=== PATIENT | male | born 1970 | race Caucasian/White ===

== ENCOUNTER 2017-02-07 22:35 | Emergency (ER) | payer OTHER ==
[~2017-02-07] VITALS: Ht 180.3 cm; Wt 69.9 kg
[~2017-02-07 22:35] MED LIST: AMIODARONE200 MG PO; CARVEDILOL3.125 MG PO; CORDARONE200 M1 PO; COREG3.125 MG PO; DIGOXIN0.25 MG PO; DOLOPHINE10 MG PO; ELIQUIS5 MG PO; LANOXIN PO; LASIX40 MG PO; LISINOPRIL2.5 MG PO; PRILOSEC40 MG PO; XARELTO15 MG PO
[2017-02-07 22:44] VITALS: BP 134/81
--- NOTE | 2017-02-07 22:52 | NUR ---
PLACED IN BED 7. HERE FOR GENERALIZED WEAKNESS.
--- NOTE | 2017-02-07 22:52 | NUR ---
TO ER BED 7
--- NOTE | 2017-02-07 23:01 | NUR ---
12 LEAD EKG DONE BY CHAPLAINCY.
--- NOTE | 2017-02-07 23:15 | NUR ---
GAUGE 22 IV LINE ESTABLISHED TO THE RIGHT HAND. BLOOD DRAW ATTEMPTED BUT UNABLE. LAB.TECH.AT BEDSIDE TO DRAW BLOOD.
[2017-02-07] MEDS ORDERED: AMIODARONE HCL200 MG PO (23:29)
[2017-02-07] MEDS ORDERED: COUMADIN2 MG PO (23:42)
[2017-02-07] MEDS ORDERED: COUMADIN3 MG PO (23:42)
[2017-02-07] MEDS ORDERED: CARDIZEM120 M2 PO (23:42)
[2017-02-07] MEDS ORDERED: ATIVAN1 MG PO (23:42)
--- NOTE | 2017-02-07 23:48 | NUR ---
PORTABLE CXR DONE.
--- NOTE | 2017-02-07 23:55 | NUR ---
URINE DIPSTICK DONE, RESULT NOTED BY .
--- NOTE | 2017-02-08 00:09 | NUR ---
UNABLE TO DO PORTABLE CXR, PT. WENT TO RADIOLOGY DEPARTMENT FOR CXR.
--- NOTE | 2017-02-08 00:14 | NUR ---
MD MADE AWARE OF CRITICAL LABS OF PT=53.2 INR=5.4. PT. BACK FROM X-RAY.
--- NOTE | 2017-02-08 00:36 | NUR ---
MD CAME AT BEDSIDE TO EVALUATE PT.
[2017-02-08] MEDS ORDERED: MORPHINE SULFATE 4 MG/ML SYR IVP ONE (00:45)
--- NOTE | 2017-02-08 00:51 | NUR ---
MORPHINE 4 MG IVP GIVEN FOR HEADACHE ORDERED.
--- NOTE | 2017-02-08 01:00 | NUR ---
WENT FOR CT SCAN OF HEAD VIA WHEELCHAIR.
--- NOTE | 2017-02-08 01:14 | NUR ---
BACK FROM CT SCAN. VERBALIZED IMPROVEMENT OF PAIN FROM 8/10 TO 5/10.
--- NOTE | 2017-02-08 02:26 | NUR ---
MD BACK AT BEDSIDE O RE-EVALUATE AND DISCUSS PLAN OF CARE WITH PATIENT/.
[2017-02-08 02:50] VITALS: BP 140/106
[2017-02-25] MEDS ORDERED: LOPRESSOR25 MG PO (06:25)
== END 2017-02-08 02:40 | disposition home or self-care (01) ==
LOC: MED 22:35
DX: R53.1 Weakness (principal); R79.1 Abnormal coagulation profile; R51 Headache; I50.9 Heart failure, unspecified; F17.200 Nicotine dependence, unspecified, uncomplicated; Z86.19 Personal history of other infectious and parasitic diseases; Z79.01 Long term (current) use of anticoagulants; Z79.899 Other long term (current) drug therapy
CPT/HCPCS: 36415; 70450; 71010; 80053; 81002; 83880; 84484; 85025; 85610; 85730; 93005; 96374; 99285; J2270

== ENCOUNTER 2017-02-24 20:52 | Inpatient (IN) | payer OTHER ==
[~2017-02-24] VITALS: Ht 177.8 cm; Wt 81.6 kg
[~2017-02-24 20:52] MED LIST changes: +AMIO200T2 PO; -AMIODARONE200 MG PO; -CARVEDILOL3.125 MG PO; -CORDARONE200 M1 PO; -COREG3.125 MG PO; -DIGOXIN0.25 MG PO; +DILT-135 PO; +DOL10 PO; -DOLOPHINE10 MG PO; -ELIQUIS5 MG PO; +FURO-570 PO; -LANOXIN PO; -LASIX40 MG PO; -LISINOPRIL2.5 MG PO; +LORA-476 PO; -PRILOSEC40 MG PO; +WARF2TAB79 PO; +WARF3TAB PO; -XARELTO15 MG PO
[2017-02-24 21:15] VITALS: BP 146/100
--- NOTE | 2017-02-24 21:29 | NUR ---
TO ER BED 6
--- NOTE | 2017-02-24 21:30 | NUR ---
PT HAS HX OF CHF, AFIB, A-FLUTTER, AND HEP-C
--- NOTE | 2017-02-24 21:30 | NUR ---
PATIENT PRESENTS TO ED WITH C/O CHEST PAIN, SINCE YESTERDAY, VOMITING . PT STATES CP RADIATES TO THE RIGHT LOWER QUADRANT OF AB .PT DENIES N/D; SKIN IS PINK/WARM/DRY; AAOX4 WITH EVEN AND STEADY GAIT; HR EVEN AND REGULAR; PT DENIES ANY FEVER, OR COUGH AT THIS TIME; PATIENT STATES PAIN OF 8/10 AT THIS TIME; VSS; PATIENT POSITIONED FOR COMFORT; HOB ELEVATED; BEDRAILS UP X2; BED DOWN. ER MD MADE AWARE OF PT STATUS.
[2017-02-24] MEDS ORDERED: NITROGLYCERIN 2% 1 GM PKT TP ONE (21:55)
[2017-02-24] MEDS ORDERED: ASPIRIN 325 MG TAB PO ONE (21:55)
[2017-02-24] MEDS ORDERED: METOPROLOL 5 MG/5 ML VIAL IVP ONE (22:20)
[2017-02-24] MEDS ORDERED: FUROSEMIDE 40 MG/4 ML VIAL IVP ONE (22:35)
[2017-02-24 22:41] LABS: ANION GAP 15.1 (8-16); CALCIUM 8.8 mg/dL (8.5-10.1); CREATININE 1.1 mg/dL (0.6-1.3); POTASSIUM 4.1 mmol/L (3.5-5.1)
[2017-02-24 22:46] LABS: ALBUMIN 2.7 g/dL (3.4-5.0); TOTAL BILIRUBIN 2.7 mg/dL (0.0-1.0); TOTAL PROTEIN, SERUM 8.1 g/dL (6.4-8.2)
[2017-02-24 22:54] LABS: CREATINE KINASE MB 0.7 ng/mL (0-3.6)
[2017-02-24 22:58] LABS: CHOL/HDL RATIO 4.1 (1-4.5)
[2017-02-24 23:59] LABS: HEMATOCRIT 35.5 % (36-52); HEMOGLOBIN 11.2 g/dL (12.0-18.0); MEAN CORPUSCULAR HEMOGLOBIN 26 pg (27-31); MEAN CORPUSCULAR HGB CONC 32 g/dL (33-37); MEAN CORPUSCULAR VOLUME 83 fL (80-94); PLATELET COUNT (AUTO) 287 K/uL (140-450); RED BLOOD CELL COUNT(AUTO) 4.29 MIL/uL (4.20-6.10); RED CELL DISTRIBUTION WIDTH 20.2 % (11.6-13.7); WHITE BLOOD COUNT (AUTO) 13.5 K/uL (4.8-10.8)
[2017-02-25 00:25] LABS: BASOPHILS % (MANUAL) 0 % (0-2); EOSINOPHILS % (MANUAL) 0 % (0-4); LYMPHOCYTES % (MANUAL) 26 % (20-46); MONOCYTES % (MANUAL) 10 % (5-12); NEUTROPHILS % (MANUAL) 64 (43-65)
[2017-02-25] MEDS ORDERED: LORazepam 1 MG TAB PO PRN (00:55)
[2017-02-25] MEDS ORDERED: ONDANSETRON 4 MG/2 ML VIAL IVP PRN (00:55)
[2017-02-25] MEDS ORDERED: MORPHINE SULFATE 2 MG/ML SYR IVP PRN (00:55)
[2017-02-25] MEDS ORDERED: ACETAMINOPHEN 325 MG TAB PO PRN (00:55)
[2017-02-25] MEDS ORDERED: ZOLPIDEM 5 MG TAB PO PRN (00:55)
[2017-02-25] MEDS ORDERED: NITROGLYCERIN 0.4 MG TAB SL PRN (00:55)
[2017-02-25] MEDS ORDERED: ASPIRIN 81 MG TAB.CHEW PO ONE (00:55)
--- NOTE | 2017-02-25 01:15 | NUR ---
Patient will be admitted to care of DR HAINES. Admited to TELE 115. Will go to room 115. Belongings list completed. Report to EMMANUEL DIAZ .
[2017-02-25 01:30] VITALS: BP 134/109
--- NOTE | 2017-02-25 01:30 | NUR ---
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
--- NOTE | 2017-02-25 01:50 | NUR ---
AMBULATED TO BR WITH ASSIST, VERBALIZED VOIDED AND HAD BM, MEDICATED PRN FOR CHEST PAIN WITH MORPHINE IVP, ALL NEEDS ATTENDED.
[2017-02-25 04:00] VITALS: BP 122/75
--- NOTE | 2017-02-25 04:00 | NUR ---
PT SLEEPING, EASILY AROUSABLE, NO SIGNS OF PAIN OR SOB, VITAL SIGNS STABLE, CONTROLLED A-FIB ON TELE, AT BEDSIDE, MONITORED CLOSELY.
--- NOTE | 2017-02-25 06:08 | NUR ---
PAGED DR DEMPSEY, WITH ORDER FOR CARDIAC DIET, ROUNDED ON PT, SLEEPING, NO SIGNS OF DISTRESS, MONITORED CLOSELY.
[2017-02-25] MEDS ORDERED: METO25TA PO (06:25)
--- NOTE | 2017-02-25 07:15 | NUR ---
PT SLEEPING, NO SIGNS OF DISTRESS, REPORT GIVEN TO JOE TREVINO FOR CONTINUITY OF CARE.
--- NOTE | 2017-02-25 07:16 | NUR ---
RECEIVED PT ASLEEP BUT EASILY AROUSABLE, AAOX4, WITH O2 AT 2LPM VIA NC, NO S/S OF ACUTE DISTRESS. WITH IV ACCESS AT RIGHT HAND ON SALINE LOCK PATENT AND INTACT. WITH BILATERAL LOWER EXTREMITIES PITTING EDEMA 3+, NO COMPLAINTS OF PAIN. DISCUSSED PLAN OF CARE, PT VERBALIZED UNDERSTANDING. CALL LIGHT WITHIN REACH, WILL CONTINUE TO MONITOR.
[2017-02-25 08:00] VITALS: BP 134/92
[2017-02-25] MEDS: FUROSEMIDE 40 MG/4 ML VIAL IVP SCH ×2 (08:10→20:44)
[2017-02-25] MEDS: DILTIAZEM 120 MG CAPER PO SCH (08:11)
[2017-02-25] MEDS: METHADONE 10 MG TAB PO SCH (08:11)
[2017-02-25] MEDS: AMIODARONE 200 MG TAB PO SCH ×2 (08:11→20:44)
--- NOTE | 2017-02-25 08:16 | NUR ---
DUE MEDS GIVEN, PT TOLERATED WELL. PT EATING BREAKFAST WITH GOOD APPETITE. CALL LIGHT WITHIN REACH, WILL CONTINUE TO MONITOR
--- NOTE | 2017-02-25 08:37 | NUR ---
PATIENT HAS BEEN SCREENED AND CATEGORIZED MODERATE NUTRITION RISK. PATIENT WILL BE SEEN WITHIN 3-5 DAYS OF ADMISSION. 02/27/17-03/01/[address]
[2017-02-25 08:42] LABS: INR 1.8 (0.8-1.2); PROTHROMBIN TIME 16.9 secs (10.8-13.4)
[2017-02-25 09:18] LABS: CREATINE KINASE MB 0.7 ng/mL (0-3.6)
--- NOTE | 2017-02-25 10:02 | NUR ---
PT ASLEEP, NO S/S OF DISTRESS NOTED. ALL NEEDS ATTENDED, WILL CONTINUE TO MONITOR
[2017-02-25 12:00] VITALS: BP 121/74
--- NOTE | 2017-02-25 12:02 | NUR ---
DR HAINES AT NURSES' STATION
--- NOTE | 2017-02-25 12:27 | NUR ---
CM NOTE INITIAL REVIEW SENT TO [facility] FAX# [phone] MOHSEN ROLDAN PH# [phone]
--- NOTE | 2017-02-25 12:40 | NUR ---
FAX SENT TO [facility] FOR PATIENT'S RECORDS
[2017-02-25] MEDS ORDERED: DILTIAZEM 25 MG/5 ML VIAL IVP PRN (12:45)
--- NOTE | 2017-02-25 13:46 | NUR ---
PT LEFT UNIT FOR XRAY IN STABLE CONDITION
--- NOTE | 2017-02-25 14:57 | NUR ---
UNABLE TO VERIFY WITH THE [facility]. NOTIFIED DR HAINES, STATED TO CONTINUE WITH CURRENT ORDERS
[2017-02-25 16:00] VITALS: BP 111/71
[2017-02-25] MEDS: CARVEDILOL 3.125 MG TAB PO SCH (16:41)
[2017-02-25 16:44] LABS: CREATINE KINASE MB 0.7 ng/mL (0-3.6)
--- NOTE | 2017-02-25 16:44 | NUR ---
DR Bonifacio REYES AT NURSES' STATION. PT PLACED ON FLUID RESTRICTION 1500 ML
[2017-02-25] MEDS ORDERED: WARFARIN 1 MG TAB PO SCH (17:00)
--- NOTE | 2017-02-25 18:21 | NUR ---
PT EATING DINNER WITH GOOD APPETITE. CALL LIGHT WITHIN REACH, WILL CONTINUE TO MONITOR.
--- NOTE | 2017-02-25 19:25 | NUR ---
ENDORSED PT TO JOE BENITEZ IN STABLE CONDITION FOR CONTINUITY OF CARE
--- NOTE | 2017-02-25 19:28 | NUR ---
RECEIVED PT AWAKE ON HIGH FOWLERS POSITION, AAOX4, NO SOB NOTED, VITAL SIGNS TAKEN, BP ON THE LOW SIDE:91/56, ASYMPTOMATIC, DENIES CHEST PAIN, INSTRUCTED PT WITH AT BEDSIDE REGARDING FLUID RESTRICTION, VERBALIZED UNDERSTANDING, MAINTAIN ON CONTACT ISOLATION, PLAN OF CARE DISCUSSED, SAFETY MEASURES IN PLACE, CALL LIGHT WITHIN REACH.
[2017-02-25 20:00] VITALS: BP 91/56
--- NOTE | 2017-02-25 21:00 | NUR ---
DUE LASIX NOT GIVEN DUE TO DECREASE BLOOD PRESSURE, ALL NEEDS ATTENDED.
--- NOTE | 2017-02-25 22:15 | NUR ---
AMBULATED TO BR WITH MINIMAL ASSIST AND VOIDED FREELY, MONITORED CLOSELY.
[2017-02-26] VITALS: BP 92/72
--- NOTE | 2017-02-26 | NUR ---
PT AWAKE, DENIES CHEST PAIN, VITAL SIGNS TAKEN, BP-92/72, ASYMPTOMATIC, NO SOB NOTED, PROVIDED SANDWICH PER REQUEST, CONTINUE TO MONITOR CLOSELY.
[2017-02-26 04:00] VITALS: BP 101/65
--- NOTE | 2017-02-26 04:00 | NUR ---
PT AWAKE WITH AT BEDSIDE, VITAL SIGNS STABLE, DENIES CHEST PAIN, NO SOB NOTED, MONITORED CLOSELY.
--- NOTE | 2017-02-26 06:30 | NUR ---
PT SLEEPING, NO SIGNS OF DISTRESS, CONTINUE TO MONITOR CLOSELY.
--- NOTE | 2017-02-26 07:10 | NUR ---
RECEIVED PATIENT REPORT AT BEDSIDE. PATIENT AWAKE, ALERT AND ORIENTED. NO S/S OF DISTRESS NOTED. NO C/O PAIN AT THIS TIME. PATIENT ON 2L 02 VIA NC. IV LINE NOTED TO THE RIGHT WRIST SALINE LOCKED. PATIENT ON TELE MONITORING. BED LOWERED WITH CALL LIGHT WITHIN REACH. WILL CONTINUE TO MONITOR
[2017-02-26 07:14] LABS: BASOPHILS # (AUTO) 0.4 K/uL (0.00-0.22); BASOPHILS % (AUTO) 3.6 % (0.0-2.0); EOSINOPHILS # (AUTO) 0.1 K/uL (0-0.4); EOSINOPHILS % (AUTO) 1.2 % (0.0-4.0); HEMATOCRIT 32.6 % (36-52); HEMOGLOBIN 10.1 g/dL (12.0-18.0); LYMPHOCYTES % (AUTO) 26.4 % (20.5-51.1); MEAN CORPUSCULAR HEMOGLOBIN 25 pg (27-31); MEAN CORPUSCULAR HGB CONC 31 g/dL (33-37); MEAN CORPUSCULAR VOLUME 82 fL (80-94); MONOCYTES # (AUTO) 0.6 K/uL (0.8-1.0); MONOCYTES % (AUTO) 5.7 % (1.7-9.3); NEUTROPHILS # (AUTO) 7.3 K/uL (1.8-7.7); NEUTROPHILS % (AUTO) 63.1 % (42.2-75.2); PLATELET COUNT (AUTO) 253 K/uL (140-450); WHITE BLOOD COUNT (AUTO) 11.4 K/uL (4.8-10.8)
[2017-02-26 07:39] LABS: INR 1.5 (0.8-1.2); PROTHROMBIN TIME 14.1 secs (10.8-13.4)
[2017-02-26 08:00] VITALS: BP 100/89
[2017-02-26] MEDS: CARVEDILOL 3.125 MG TAB PO SCH ×2 (08:00→17:05)
[2017-02-26 08:47] LABS: ANION GAP 10.7 (8-16); CALCIUM 8.1 mg/dL (8.5-10.1); CARBON DIOXIDE 28.6 mmol/L (21-32); CREATININE 1.2 mg/dL (0.6-1.3); POTASSIUM 4.3 mmol/L (3.5-5.1)
[2017-02-26] MEDS: METHADONE 10 MG TAB PO SCH (08:54)
[2017-02-26] MEDS: DILTIAZEM 120 MG CAPER PO SCH (08:54)
[2017-02-26] MEDS: AMIODARONE 200 MG TAB PO SCH ×2 (08:55→21:06)
[2017-02-26] MEDS: SPIRONOLACTONE 25 MG TAB PO SCH (08:55)
[2017-02-26] MEDS: FUROSEMIDE 40 MG/4 ML VIAL IVP SCH (08:58)
[2017-02-26] MEDS: CLINICAL MONITORING MC SCH (09:00)
--- NOTE | 2017-02-26 10:13 | NUR ---
PATIENT RESTING COMFORTABLY IN BED. NO S/S OF DISTRESS NOTED
--- NOTE | 2017-02-26 11:13 | NUR ---
CM NOTE CONCURRENT REVIEW SENT TO [facility] FAX# [phone] CM JAMAR PH# [phone]
[2017-02-26 12:00] VITALS: BP 109/81
--- NOTE | 2017-02-26 13:00 | NUR ---
PATIENT COMFORTABLY RESTING IN BED, WATCHING TELEVISION. NO S/S OF DISTRESS NOTED
[2017-02-26 16:00] VITALS: BP 122/85
[2017-02-26] MEDS ORDERED: WARFARIN 1 MG TAB PO SCH (17:00)
[2017-02-26] MEDS ORDERED: WARFARIN 2 MG TAB PO SCH (17:00)
--- NOTE | 2017-02-26 17:10 | NUR ---
ECHO DONE AT BEDSIDE
--- NOTE | 2017-02-26 19:22 | NUR ---
PATIENT REPORT GIVEN AT BEDSIDE. PATIENT ENDORSED IN STABLE CONDITION
--- NOTE | 2017-02-26 19:23 | NUR ---
RECEIVED REPORT, ASSUMED CARE. PT AAOX4, SITTING UPRIGHT POSITION IN BED. FAMILY AT BEDSIDE. NO C/O PAIN AT THIS TIME. REGULAR BREATHING PATTERN. PT ON TELE MONITOR. CONTACT ISOLATION PRECAUTION OBSERVED DUE TO HX HEP C AND MRSA NARES.HL TO RIGHT WRIST, INTACT AND PATENT, NO S/S OF INFILTRATION. PLAN OF CARE DISCUSSED AND VERBALIZED UNDERSTANDING. CALL LIGHT AND URINAL WITHIN EASY REACH. ANTICIPATED NEEDS. WILL CONTINUE TO MONITOR.
--- NOTE | 2017-02-26 19:40 | NUR ---
DR. AMY Torres CAME AND SEEN AND EXAMINE PT.
[2017-02-26 20:00] VITALS: BP 120/83
--- NOTE | 2017-02-26 20:17 | NUR ---
C/O HEARTBURN. PAGED DR. ZAKI Torres AND DR. DEMPSEY FIELD OPERATIONS TECHNICIAN . CALLED BACK AND MADE AWARE , WITH ORDER.
[2017-02-26] MEDS: FAMOTIDINE 20 MG TAB PO SCH (21:06)
--- NOTE | 2017-02-26 23:55 | NUR ---
PT AWAKE AT THIS TIME. RESPIRATION EVEN AND UNLABORED,NO SOB, NO RESPIRATORY DISTRESS AT THIS TIME. PT C/O MIGRAINE 05/21. WILL MEDICATE TO RELIEVE PAIN. WILL CONTINUE TO MONITOR. ALL NEEDS ANTICIPATED. CALL LIGHT WITHIN EASY REACH.
[2017-02-27 00:10] VITALS: BP 122/81
[2017-02-27 04:00] VITALS: BP 118/68
--- NOTE | 2017-02-27 04:35 | NUR ---
PT SOUND ASLEEP BUT EASILY AROUSABLE. RESPIRATION REGULAR AND UNLABORED. NO ACUTE CHANGES NOTED, DENIES ANY PAIN AT THIS TIME. FREQUENT ROUNDING DONE. WILL CONTINUE TO MONITOR.
[2017-02-27 05:49] LABS: BASOPHILS # (AUTO) 0.4 K/uL (0.00-0.22); BASOPHILS % (AUTO) 3.7 % (0.0-2.0); EOSINOPHILS # (AUTO) 0.1 K/uL (0-0.4); EOSINOPHILS % (AUTO) 1.1 % (0.0-4.0); HEMATOCRIT 32.2 % (36-52); HEMOGLOBIN 9.9 g/dL (12.0-18.0); LYMPHOCYTES # (AUTO) 2.8 K/uL (2.0-11.5); LYMPHOCYTES % (AUTO) 28.1 % (20.5-51.1); MEAN CORPUSCULAR HEMOGLOBIN 25 pg (27-31); MEAN CORPUSCULAR HGB CONC 31 g/dL (33-37); MEAN CORPUSCULAR VOLUME 82 fL (80-94); MONOCYTES # (AUTO) 0.5 K/uL (0.8-1.0); MONOCYTES % (AUTO) 5.2 % (1.7-9.3); NEUTROPHILS % (AUTO) 61.9 % (42.2-75.2); PLATELET COUNT (AUTO) 242 K/uL (140-450); RED BLOOD CELL COUNT(AUTO) 3.94 MIL/uL (4.20-6.10); RED CELL DISTRIBUTION WIDTH 20.1 % (11.6-13.7); WHITE BLOOD COUNT (AUTO) 9.8 K/uL (4.8-10.8)
--- NOTE | 2017-02-27 06:15 | NUR ---
STILL NEED URINE SPECIMEN FOR UA AND UDS. WENT TO BATHROOM ,VOIDED X1 BUT UNABLE TO COLLECT. INSTRUCTED AGAIN THE NEED FOR URINE. CONTAINER AT BEDSIDE.
[2017-02-27 06:20] LABS: ALBUMIN 2.1 g/dL (3.4-5.0); ANION GAP 8.2 (8-16); CALCIUM 8.2 mg/dL (8.5-10.1); CREATININE 1.1 mg/dL (0.6-1.3); INR 1.4 (0.8-1.2); POTASSIUM 4.2 mmol/L (3.5-5.1); TOTAL BILIRUBIN 1.6 mg/dL (0.0-1.0); TOTAL PROTEIN, SERUM 6.6 g/dL (6.4-8.2)
--- NOTE | 2017-02-27 07:10 | NUR ---
RECEIVED PATIENT REPORT AT BEDSIDE. PATIENT AWAKE, ALERT AND ORIENTED. NO S/S OF DISTRESS NOTED. NO C/O OF PAIN AT THIS TIME. PATIENT ON ROOM AIR. PATIENT ON TELE MONITORING. BED LOWERED WITH CALL LIGHT WITHIN REACH. WILL CONTINUE TO MONITOR
--- NOTE | 2017-02-27 07:26 | NUR ---
ENDORSED PT TO THE NEXT SHIFT FOR CONTINUITY OF CARE. PT IN STABLE CONDITION.
[2017-02-27 08:00] VITALS: BP 125/93
[2017-02-27] MEDS ORDERED: FUROSEMIDE 40 MG/4 ML VIAL IVP SCH (09:00)
[2017-02-27] MEDS: CLINICAL MONITORING MC SCH (09:00)
[2017-02-27] MEDS: AMIODARONE 200 MG TAB PO SCH (09:13)
[2017-02-27] MEDS: METHADONE 10 MG TAB PO SCH (09:13)
[2017-02-27] MEDS: SPIRONOLACTONE 25 MG TAB PO SCH (09:14)
[2017-02-27] MEDS: DILTIAZEM 120 MG CAPER PO SCH (09:14)
[2017-02-27] MEDS: FAMOTIDINE 20 MG TAB PO SCH (09:14)
[2017-02-27] MEDS: CARVEDILOL 3.125 MG TAB PO SCH (09:15)
--- NOTE | 2017-02-27 09:40 | NUR ---
PATIENT ELOPED. PATIENT LEFT THE THE UNIT WITHOUT NOTIFYING ANYONE. PATIENT LEFT TELE MONITOR BOX IN THE ROOM AND DISCONTINUED HIS IV LINE. TALK SHOW HOST NOTIFIED
--- NOTE | 2017-02-27 10:06 | NUR ---
CM NOTE CONCURRENT REVIEW SENT TO [facility] FAX# [phone] CM JAMAR PH# [phone]
[2017-02-27 11:58] LABS: APPEARANCE,URINE CLEAR (CLEAR); BILIRUBIN,URINE NEGATIVE (NEGATIVE); BLOOD, URINE NEGATIVE (NEGATIVE); COLOR,URINE YELLOW (YELLOW); LEUKOCYTE ESTERASE ,URINE NEGATIVE (NEGATIVE); NITRITE, URINE NEGATIVE (NEGATIVE); PH,URINE 6.5 (5.0-9.0); PROTEIN,URINE NEGATIVE (NEGATIVE); UGLUCOSE NEGATIVE (NEGATIVE)
[2017-02-27 12:05] LABS: AMPHETAMINE, URINE NEG. ng/ml (NEG <=1000); BARBITURATE, URINE NEG. ng/ml (NEG <=200); BENZODIAZEPINE, URINE NEG. ng/mL (NEG <=200); CANNABINOID, URINE NEG. ng/mL (NEG <=50); COCAINE, URINE NEG. ng/mL (NEG <=300); OPIATE, URINE POS. ng/mL (NEG <=2000); PHENCYCLIDINE SCREEN,URINE NEG. ng/mL (NEG <=25)
== END 2017-02-27 09:40 | disposition left against medical advice (07) | DRG 194 ==
LOC: MED 20:52 → MTU 02-25 00:57
PROVIDERS: ADMIT Hospitalist; ATTEND Hospitalist
DX: I11.0 Hypertensive heart disease with heart failure (principal); F11.20 Opioid dependence, uncomplicated; Z86.74 Personal history of sudden cardiac arrest; Z79.01 Long term (current) use of anticoagulants; I50.9 Heart failure, unspecified; Z53.21 Procedure and treatment not carried out due to patient leaving prior to being seen by health care provider; F41.9 Anxiety disorder, unspecified; I48.91 Unspecified atrial fibrillation; G89.4 Chronic pain syndrome; B19.20 Unspecified viral hepatitis C without hepatic coma; Z87.898 Personal history of other specified conditions; Z86.711 Personal history of pulmonary embolism; Z95.810 Presence of automatic (implantable) cardiac defibrillator
CPT/HCPCS: 36415; 71010; 71020; 80048; 80053; 80305; 81003; 82550; 82553; 82948; 83735; 83880; 84484; 85025; 85379; 85610; 87081; 93005; 96374; 96375; 99285; J1940; J2270; J3490

== ENCOUNTER 2018-10-14 23:30 | Emergency (ER) | payer MEDICAID, OTHER ==
[~2018-10-14] VITALS: Ht 175.3 cm; Wt 77.1 kg
[~2018-10-14 23:30] MED LIST changes: -AMIO200T2 PO; +AMIO200T5 PO; +METO25TA PO
[2018-10-14 23:37] VITALS: BP 140/86
--- NOTE | 2018-10-14 23:39 | NUR ---
PT AMBULATORY TO ER LOBBY W/ STEADY GAIT IN STABLE CONDITION.
--- NOTE | 2018-10-14 23:56 | NUR ---
PT TO ER BED 9
--- NOTE | 2018-10-15 00:16 | NUR ---
47/M PRESENTS TO ED WITH FAMILY/FRIEND, C/O L SIDED GROIN ABSCESS, X3 DAYS; L LATERAL PROXIMAL THIGH OPEN WOUND/CELLULITIS, X2 WEEKS; L MID LATERAL OPEN WOUND/CELLULITIS, X3 WEEKS. PT REPORTS THAT HE "POPPED" THE GROIN ABSCESS, WHICH MADE HIS PREVIOUS WOUNDS WORSE. PT DENIES ANY FEVER, N/V. HX CHF, A.FIB, IV DRUG USE RX NONCOMPLIANCE
--- NOTE | 2018-10-15 00:37 | NUR ---
Dr. Lemons evaluating patient at bedside.
[2018-10-15] MEDS ORDERED: NACL 0.9% 1,000 ML IV ONE (00:45)
[2018-10-15] MEDS ORDERED: ENOXAPARIN 80 MG/0.8 ML SYR SUBQ ONE (00:45)
[2018-10-15] MEDS ORDERED: CLINDAMYCIN 900 MG in DEXTROSE 5% 100 ML IV ONE (00:45)
[2018-10-15] MEDS ORDERED: NEOMYCIN/POLYMYXIN/BACITRACIN 0.9 GM/1 PKT TP ONE (00:55)
[2018-10-15] MEDS ORDERED: DILTIAZEM 25 MG/5 ML VIAL IVP ONE (00:55)
[2018-10-15] MEDS ORDERED: CLINDAMYCIN 900 MG/6 ML VIAL IV ONE (00:59)
--- NOTE | 2018-10-15 01:09 | NUR ---
X-Ray at bedside.
[2018-10-15 01:13] LABS: BASOPHILS % (AUTO) 0.3 % (0.0-2.0); EOSINOPHILS % (AUTO) 0.3 % (0.0-4.0); HEMATOCRIT 44.2 % (36-52); HEMOGLOBIN 14.6 g/dL (12.0-18.0); LYMPHOCYTES # (AUTO) 2.5 K/uL (2.0-11.5); LYMPHOCYTES % (AUTO) 28.7 % (20.5-51.1); MEAN CORPUSCULAR HEMOGLOBIN 29 pg (27-31); MEAN CORPUSCULAR HGB CONC 33 g/dL (33-37); MEAN CORPUSCULAR VOLUME 86.4 fL (80-94); MONOCYTES # (AUTO) 0.5 K/uL (0.8-1.0); MONOCYTES % (AUTO) 6.2 % (1.7-9.3); NEUTROPHILS # (AUTO) 5.7 K/uL (1.8-7.7); NEUTROPHILS % (AUTO) 64.5 % (42.2-75.2); PLATELET COUNT (AUTO) 193 K/uL (140-450); RED BLOOD CELL COUNT(AUTO) 5.11 MIL/uL (4.20-6.10); RED CELL DISTRIBUTION WIDTH 15.3 % (11.6-13.7); WHITE BLOOD COUNT (AUTO) 8.8 K/uL (4.8-10.8)
[2018-10-15 01:30] LABS: ALBUMIN 3.6 g/dL (3.4-5.0); ANION GAP 11.9 (8-16); CARBON DIOXIDE 31.6 mmol/L (21-32); CREATININE 0.9 mg/dL (0.7-1.3); POTASSIUM 4.5 mmol/L (3.5-5.1); PROTHROMBIN TIME 10.4 secs (10.8-13.4); TOTAL BILIRUBIN 0.4 mg/dL (0.0-1.0)
[2018-10-15 02:41] VITALS: BP 118/77
--- NOTE | 2018-10-15 02:41 | NUR ---
Patient discharged with v/s stable. Written and verbal after care instructions given and explained. Patient alert, oriented and verbalized understanding of instructions. Ambulatory with steady gait. All questions addressed prior to discharge. ID band removed. Patient advised to follow up with PMD. Rx of BACTRIM, MOTRIN, COUMADIN, CARDIZEM given. Patient educated on indication of medication including possible reaction and side effects. Opportunity to ask questions provided and answered.
== END 2018-10-15 02:41 | disposition home or self-care (01) ==
LOC: MED 23:30
DX: L03.314 Cellulitis of groin (principal); L03.116 Cellulitis of left lower limb; I48.91 Unspecified atrial fibrillation; R94.31 Abnormal electrocardiogram [ECG] [EKG]; J45.909 Unspecified asthma, uncomplicated; I50.9 Heart failure, unspecified; Z79.899 Other long term (current) drug therapy
CPT/HCPCS: 36415; 71045; 80053; 84484; 85025; 85610; 85730; 93005; 96365; 96372; 96375; 99284; J1650; J3490; J7030; Q0092

== ENCOUNTER 2019-03-11 23:32 | Emergency (ER) | payer MEDICAID ==
[~2019-03-11] VITALS: Ht 175.3 cm; Wt 72.6 kg
[2019-03-11 23:38] VITALS: BP 148/76
--- NOTE | 2019-03-11 23:38 | NUR ---
PT AMBULATED TO ER BED 4
--- NOTE | 2019-03-11 23:50 | NUR ---
48 Y/O M PRESENTED TO ED WITH C/O L SHOULDER PAIN X1 WEEK. 9/10 PAIN, PRESSURE AND CONSTANT. PT STATED "I'M TRYING TO COME OFF OF HEROIN. I LAST USED THIS AFTERNOON." AREA OF PAIN IS ONE OF THE SITES USED TO FOR HEROIN INJECTIONS. LIMITED ROM TO L ARM. SKIN WAMR AND PINK. ERMD NOTIFIED. WILL CONTINUE TO MONITOR.
--- NOTE | 2019-03-12 00:51 | NUR ---
Patient discharged with v/s stable. Written and verbal after care instructions given and explained. Patient alert, oriented and verbalized understanding of instructions. Ambulatory with steady gait. All questions addressed prior to discharge. ID band removed. Patient advised to follow up with PMD. Rx of Keflex, Motrin, and Prednisone given. Patient educated on indication of medication including possible reaction and side effects. Opportunity to ask questions provided and answered.
== END 2019-03-12 00:51 | disposition home or self-care (01) ==
LOC: MED 23:32
DX: L03.313 Cellulitis of chest wall (principal); J45.909 Unspecified asthma, uncomplicated; I50.9 Heart failure, unspecified; I48.91 Unspecified atrial fibrillation; Z98.890 Other specified postprocedural states; Z79.01 Long term (current) use of anticoagulants; Z79.899 Other long term (current) drug therapy; F17.200 Nicotine dependence, unspecified, uncomplicated
CPT/HCPCS: 99283

== ENCOUNTER 2022-01-05 01:17 | Emergency (ER) | payer MEDICAID ==
[~2022-01-05] VITALS: Ht 175.3 cm; Wt 75.3 kg
[~2022-01-05 01:17] MED LIST changes: -AMIO200T5 PO; +AMIO200T70 PO; -DOL10 PO; +METH-1550 PO; +WARF-92 PO; -WARF2TAB79 PO; -WARF3TAB PO; +WARF3TAB18 PO
[2022-01-05 01:25] VITALS: BP 126/86
--- NOTE | 2022-01-05 01:25 | NUR ---
TO BED AMBULATORY
--- NOTE | 2022-01-05 01:35 | NUR ---
COVERING PRIMARY RN FOR LUNCH RELIEF. SEE COMPLETE ASSESSMENT
--- NOTE | 2022-01-05 02:14 | NUR ---
ATTEMPTED IV INSERTION x2, UNSUCCESSFUL. WILL NOTIFY PRIMARY RN.
[2022-01-05] MEDS ORDERED: DILTIAZEM 25 MG/5 ML VIAL IVP ONE (02:15)
[2022-01-05] MEDS ORDERED: LORazepam 2 MG/ML VIAL IVP ONE (02:15)
--- NOTE | 2022-01-05 02:15 | NUR ---
24G TO LEFT WRIST ESTABLISHED.
--- NOTE | 2022-01-05 02:45 | NUR ---
LAB AT BEDSIDE.
--- NOTE | 2022-01-05 02:54 | NUR ---
LAB UNSUCCESSFUL WITH LAB DRAW. PT STATES HE NEEDS A MOMENT BEFORE ANOTHER ATEMPT IS MADE. GERMÁN BOSTON MADE AWARE.
--- NOTE | 2022-01-05 02:58 | NUR ---
PT BECOMES ANXIOUS AND GOES BACK INTO AFIB RVR. PT'S HEART RATE LOWERS INTO THE 100'S WHEN CALM. GERMÁN BOSTON MADE AWARE.
--- NOTE | 2022-01-05 03:05 | NUR ---
PT PLACED ON 2L OF O2 VIA NC FOR COMFORT.
--- NOTE | 2022-01-05 03:08 | NUR ---
PT PROVIDED WITH WARM BLANKET AND PILLOW FOR COMFORT. LIGHTS OFF TO REDUCE STIMULATION.
--- NOTE | 2022-01-05 03:19 | NUR ---
LAB AT BEDSIDE TO DRAW THE REST OF ORDERS.
[2022-01-05 03:28] LABS: ALBUMIN 3.6 g/dL (3.4-5.0); ANION GAP 14.6 (8-16); ASPARTATE AMINOTRANSFERASE 42 U/L (15-37); CARBON DIOXIDE 23.5 mmol/L (21-32); CHLORIDE 105 mmol/L (98-107); CREATININE 1.2 mg/dL (0.6-1.3); GFR ARICAN-AMERICAN 81 mL/min (>90); GLUCOSE 81 mg/dL (74-106); MAGNESIUM 1.9 mg/dL (1.8-2.4); POTASSIUM 5.1 mmol/L (3.5-5.1); SODIUM SERUM 138 mmol/L (136-145); TOTAL BILIRUBIN 2.4 mg/dL (0.0-1.0)
[2022-01-05 03:34] LABS: BASOPHILS % (AUTO) 0.6 % (0.0-2.0); EOSINOPHILS % (AUTO) 0.5 % (0.0-4.0); HEMATOCRIT 42.4 % (36-52); HEMOGLOBIN 14.3 g/dL (12.0-18.0); LYMPHOCYTES # (AUTO) 2.2 K/uL (2.0-11.5); LYMPHOCYTES % (AUTO) 29.4 % (20.5-51.1); MEAN CORPUSCULAR HEMOGLOBIN 32 pg (27-31); MEAN CORPUSCULAR HGB CONC 34 g/dL (33-37); MEAN CORPUSCULAR VOLUME 93.6 fL (80-94); MONOCYTES # (AUTO) 0.5 K/uL (0.8-1.0); MONOCYTES % (AUTO) 6.5 % (1.7-9.3); NEUTROPHILS # (AUTO) 4.6 K/uL (1.8-7.7); PLATELET COUNT (AUTO) 153 K/uL (140-450); RED BLOOD CELL COUNT(AUTO) 4.53 MIL/uL (4.20-6.10); WHITE BLOOD COUNT (AUTO) 7.3 K/uL (4.8-10.8)
[2022-01-05 03:38] LABS: UREA NITROGEN, BLOOD 25 mg/dL (7-18)
--- NOTE | 2022-01-05 04:15 | NUR ---
URINE COLLECTED AND TAKEN TO LAB.
--- NOTE | 2022-01-05 04:24 | NUR ---
PT PROVIDED WITH SODA AND SANDWHICH PER REQUEST
--- NOTE | 2022-01-05 04:35 | NUR ---
INCREASED SOB WITH ACTIVITY. O2 SAT AT 93% AT RA. GERMÁN BOSTON MADE AWARE.
[2022-01-05 04:42] LABS: BARBITURATE, URINE NEGATIVE ng/ml (NEG <=200); BENZODIAZEPINE, URINE NEGATIVE ng/mL (NEG <=200); CANNABINOID, URINE NEGATIVE ng/mL (NEG <=50); COCAINE, URINE NEGATIVE ng/mL (NEG <=300); OPIATE, URINE POSITIVE ng/mL (NEG <=2000); PHENCYCLIDINE SCREEN,URINE NEGATIVE ng/mL (NEG <=25)
--- NOTE | 2022-01-05 05:00 | NUR ---
PT REFUSED BLOOD DRAW, ERMD AWARE.
--- NOTE | 2022-01-05 05:12 | NUR ---
ACCOMPAINED TO EXPLAIN REASON FOR ADMISSION. PT STATES HE DOES NOT FEEL COMFORTABLE STAYING AT THE HOSPITAL UNTIL HE HELPS HIS MOVE OUT OF HER CURRENT RESIDENCY. EXPLAINED RISKS OF LEAVING AMA, PT STATED HE UNDERSTANDS.
[2022-01-05 05:25] VITALS: BP 119/88
--- NOTE | 2022-01-05 05:25 | NUR ---
Patient does not wish to proceed with medical care recommended by . Patient given information related to possible complications, up to and including , which could occur as a result of leaving hospital at this time. Patient verbalizes understanding of risks involved leaving against medical advice. Patient has signed AMA form.
== END 2022-01-05 05:25 | disposition left against medical advice (07) ==
LOC: MED 01:17
DX: R06.00 Dyspnea, unspecified (principal); I50.9 Heart failure, unspecified; F15.10 Other stimulant abuse, uncomplicated; J45.909 Unspecified asthma, uncomplicated; Z79.899 Other long term (current) drug therapy
CPT/HCPCS: 36415; 71045; 80053; 80305; 83735; 83880; 84484; 85025; 93005; 96374; 96375; 99285; J2060; J3490; Q0092